=== PATIENT | female | born 2000 | race Caucasian/White ===

== ENCOUNTER 2018-03-25 19:45 | Emergency (ER) | payer BC, OTHER ==
[~2018-03-25] VITALS: Ht 165.1 cm; Wt 60.5 kg
[2018-03-25 20:48] LABS: APPEARANCE,URINE CLOUDY (CLEAR); BILIRUBIN,URINE NEGATIVE (NEGATIVE); GLUCOSE, URINE (UA) NEGATIVE (NEGATIVE); KETONES,URINE NEGATIVE (NEGATIVE); LEUKOCYTE ESTERASE ,URINE SMALL (NEGATIVE); NITRATE,URINE NEGATIVE (NEGATIVE); OCCULT BLOOD,URINE LARGE (NEGATIVE); PH,URINE 5.5 (5.0-8.0); PROTEIN,URINE NEGATIVE (NEGATIVE); UROBILINOGEN,URINE 0.2 mg/dL (<=1.0)
[2018-03-25 21:03] LABS: RBC,URINE 51-100 /HPF (0-2)
[2018-03-25 21:04] LABS: BACTERIA,URINE Rare /HPF (None Seen)
[2018-03-25 21:05] LABS: SQUAMOUS EPITHELIAL CELL,UR Few /LPF (None Seen)
[2018-03-26 00:29] VITALS: BP 128/108
== END 2018-03-26 00:49 | disposition home or self-care (01) ==
LOC: EMS 19:48
DX: T83.84XA Pain due to genitourinary prosthetic devices, implants and grafts, initial encounter (principal); Y73.2 Prosthetic and other implants, materials and accessory gastroenterology and urology devices associated with adverse incidents
CPT/HCPCS: 76856